=== PATIENT | male | born 1995 | race African-American/Black ===

== ENCOUNTER 2017-07-03 12:14 | Emergency (ER) | payer OTHER ==
[~2017-07-03] VITALS: Ht 170.2 cm; Wt 63.5 kg
[2017-07-03] MEDS ORDERED: NORCO 5-325 TA1 EACH PO ×2 (12:23)
[2017-07-03] MEDS ORDERED: IBUPROFEN 600600 M1 PO (12:23)
== END 2017-07-03 13:04 | disposition home or self-care (01) ==
LOC: ER 12:14
DX: S16.1XXA Strain of muscle, fascia and tendon at neck level, initial encounter (principal); M54.9 Dorsalgia, unspecified; V89.2XXA Person injured in unspecified motor-vehicle accident, traffic, initial encounter; Y93.89 Activity, other specified; Y92.89 Other specified places as the place of occurrence of the external cause; Y99.8 Other external cause status